=== PATIENT | male | born 1975 | race Caucasian/White ===

== ENCOUNTER 2020-06-04 19:38 | Emergency (ER) | payer SELFPAY ==
[~2020-06-04] VITALS: Ht 195.6 cm; Wt 184.6 kg
[2020-06-04 20:03] VITALS: BP 149/85
== END 2020-06-04 23:04 | disposition left against medical advice (07) ==
LOC: ER 19:41
DX: R03.0 Elevated blood-pressure reading, without diagnosis of hypertension (principal); Z53.21 Procedure and treatment not carried out due to patient leaving prior to being seen by health care provider
CPT/HCPCS: 80053; 83880; 84484; 85379; 85730